=== PATIENT | female | born 1945 | race Caucasian/White ===

== ENCOUNTER 2019-07-05 09:24 | Day surgery (SDC) | payer OTHER ==
[2019-07-05 10:18] VITALS: BMI 22.6
[2019-07-05 11:08] VITALS: TEMP 98.4
[2019-07-05 11:31] VITALS: PULSE 63
[2019-07-05 12:29] VITALS: BP 148/66
== END 2019-07-05 12:25 | disposition home or self-care (01) ==
LOC: JASU-ENDO 09:24
PROVIDERS: ATTEND Internal Medicine Gastroenterology
PROC: 0DJD8ZZ Inspection of Lower Intestinal Tract, Via Natural or Artificial Opening Endoscopic (ICD-10-PCS; principal; 2019-07-05 10:00)
DX: Z12.11 Encounter for screening for malignant neoplasm of colon (principal); K64.8 Other hemorrhoids; K55.20 Angiodysplasia of colon without hemorrhage; K57.30 Diverticulosis of large intestine without perforation or abscess without bleeding